=== PATIENT | male | born 1960 | race Caucasian/White ===

== ENCOUNTER 2017-08-01 16:31 | Emergency (ER) | payer MEDICARE, MEDICAID ==
[~2017-08-01] VITALS: Ht 177.8 cm; Wt 103.4 kg
[~2017-08-01 16:31] MED LIST: DIAZ5TAB PO; ESOM40CA PO; HYDR1TAB PO; NAP220T PO; ONDA4TAB12 PO; TELM1TAB6 PO; VARE1TAB11 PO; ZOLP5TAB8 PO
[2017-08-01 16:41] VITALS: BP 115/64
[2017-08-01] MEDS ORDERED: LIDOcaine 1.5% w/epinephrine 1:200,000 5ml ampul IJ ONE (16:55)
[2017-08-01] MEDS ORDERED: TETanus/Pertussis (Acell)/Diphther VAC/PF (Tdap-Adult) 0.5ml syringe IM ONE (16:55)
[2017-08-01] MEDS ORDERED: SULF1TAB49 PO (16:59)
[2017-08-01] MEDS ORDERED: CEPH-572 PO (16:59)
== END 2017-08-01 17:30 | disposition home or self-care (01) ==
LOC: ER 16:32
DX: L02.416 Cutaneous abscess of left lower limb (principal); I10 Essential (primary) hypertension; E11.9 Type 2 diabetes mellitus without complications; Z88.6 Allergy status to analgesic agent
CPT/HCPCS: 10060; 99284; A6449; J3490; 90715

== ENCOUNTER 2018-05-25 05:47 | Day surgery (SDC) | payer MEDICARE, MEDICAID ==
[2018-05-17 11:06] LABS: BASOPHILS % (AUTO) 0.8 % (0-1); EOSINOPHILS # (AUTO) 0.3 X10'3 (0-0.9); EOSINOPHILS % (AUTO) 5.8 % (0-6); LYMPHOCYTES # (AUTO) 1.7 X10'3 (1.1-4.8); LYMPHOCYTES % (AUTO) 28.3 % (21-51); MEAN CORPUSCULAR HEMOGLOBIN 30.5 PG (27.0-31.0); MEAN CORPUSCULAR HGB CONC 33.1 % (33.0-36.5); MEAN CORPUSCULAR VOLUME 92.2 FL (78-98); MEAN PLATELET VOLUME 9.7 FL (7.4-10.4); MONOCYTES # (AUTO) 0.3 X10'3 (0-0.9); MONOCYTES % (AUTO) 5.8 % (2-12); NEUTROPHILS # (AUTO) 3.5 X10'3 (1.8-7.7); NEUTROPHILS % (AUTO) 59.3 % (42-75); PRE OP HEMATOCRIT 45.2 % (42.0-52.0); PRE OP PLATELET COUNT 267 X10'3 (140-440); RED CELL DISTRIBUTION WIDTH 12.9 % (11.5-14.5)
[2018-05-17 11:16] LABS: PRE OP PROTIME 10.1 SECONDS (9.0-12.0)
[2018-05-17 11:24] LABS: ALBUMIN 3.8 G/DL (3.4-5.0); ALBUMIN/GLOBULIN RATIO 1.4 (1.1-1.5); ALKALINE PHOSPHATASE 92 IU/L (46-116); BLOOD UREA NITROGEN 19 MG/DL (7-18); BUN/CREATININE RATIO 29.2 (5.4-32.0); CALCIUM 8.6 MG/DL (8.5-10.1); CHLORIDE 104 MMOL/L (99-107); CREATININE 0.65 MG/DL (0.60-1.10); PRE OP ALT 44 U/L (30-65); PRE OP ANION GAP 10 (8-16); PRE OP AST 22 U/L (10-37); PRE OP BILIRUB, TOTAL 0.4 MG/DL (0.0-1.0); PRE OP GLUCOSE 126 MG/DL (70-104); PRE OP SODIUM 140 MMOL/L (135-145); TOTAL CARBON DIOXIDE 26.4 MMOL/L (24-32); TOTAL PROTEIN 6.6 G/DL (6.4-8.2); eGFR > 90 ML/MIN
[~2018-05-25] VITALS: Ht 177.8 cm; Wt 98.2 kg
[2018-05-25 05:45] VITALS: BP 101/72
[~2018-05-25 05:47] MED LIST changes: +ATOR40TA PO; -DIAZ5TAB PO; +DONE10TA7 PO; -ESOM40CA PO; +HYDR-4353 PO; -HYDR1TAB PO; +IBUP-1984 PO; -NAP220T PO; +OMEP20TA5 PO; -ONDA4TAB12 PO; +ONDA4TAB9 SL; +RIZA10TA29 SL; -TELM1TAB6 PO; +TELM80TA9 PO; -VARE1TAB11 PO; -ZOLP5TAB8 PO; +albuterol 2.5 MG/3 ML nebule NEB ONE; +cefazolin/dext.iso 2gm/50ml 50 ML IV ONE; +famotidine 20mg tablet PO ONE; +ringers solution, lacted 1,000 ML IV SCH
[2018-05-25] MEDS ORDERED: LIDOcaine 1% (10mg/ml) 2ml vial ONE (06:00)
[2018-05-25] MEDS ORDERED: HALDOL PO (06:29)
[2018-05-25] MEDS ORDERED: MEMA10TA PO ×2 (06:31)
[2018-05-25] MEDS ORDERED: BUPIVAcaine/PF 2.5mg/ml (0.25%) 10ml vial ONE (06:44)
[2018-05-25] MEDS ORDERED: LIDOcaine 0.5% (5mg/ml) 50ml vial ONE (07:20)
[2018-05-25] MEDS ORDERED: MIDAZolam 5mg/5ml vial ONE (07:23)
[2018-05-25] MEDS ORDERED: fentaNYL/PF 50MCG/1 ML 2ML syringe ONE (07:23)
[2018-05-25] MEDS ORDERED: ringers solution, lacted 1,000 ML IV SCH (08:23)
[2018-05-25] MEDS ORDERED: morphine 4 MG/ML inj SYRINge IV PRN ×2 (08:25)
[2018-05-25] MEDS ORDERED: meperidine/PF 25mg/ml syringe IV PRN ×3 (08:25)
[2018-05-25] MEDS ORDERED: ondansetron/PF 4mg/2ml inj IV PRN (08:25)
[2018-05-25] MEDS ORDERED: proCHLORperazine 10 MG/2 ml inj IV PRN (08:25)
[2018-05-25] MEDS ORDERED: propofol inj 20 ML IV ONE (09:04)
[2018-05-25 10:04] VITALS: BP 114/74
[2018-05-25 10:14] VITALS: BP 126/78
[2018-05-25 10:24] VITALS: BP 128/84
== END 2018-05-25 10:34 | disposition home or self-care (01) ==
LOC: PAS 05:47
PROVIDERS: ATTEND Orthopaedic Surgery Hand Surgery
DX: M19.032 Primary osteoarthritis, left wrist (principal); M25.332 Other instability, left wrist; M25.532 Pain in left wrist; I10 Essential (primary) hypertension; F17.210 Nicotine dependence, cigarettes, uncomplicated; Z79.899 Other long term (current) drug therapy; F41.9 Anxiety disorder, unspecified; G89.29 Other chronic pain; Z98.890 Other specified postprocedural states
CPT/HCPCS: 25800; 36415; 80053; 85025; 85610; 85730; 93005; A6402; A6449; C1713; J0690; J2001; J2175; J2250; J2704; J3010; J3490; J7120; A7000

== ENCOUNTER 2023-05-14 10:52 | Emergency (ER) | payer MEDICARE, MEDICAID ==
[~2023-05-14] VITALS: Ht 177.8 cm; Wt 83.0 kg
[~2023-05-14 10:52] MED LIST changes: +DONE10TA19 PO; -DONE10TA7 PO; +HALDOL PO; +MEMA10TA PO; +OMEP20TA43 PO; -OMEP20TA5 PO; -RIZA10TA29 SL; +RIZA10TA98 SL; -albuterol 2.5 MG/3 ML nebule NEB ONE; -cefazolin/dext.iso 2gm/50ml 50 ML IV ONE; -famotidine 20mg tablet PO ONE; -ringers solution, lacted 1,000 ML IV SCH
[2023-05-14 10:57] VITALS: BP 143/92; PULSE 61; RESP 16; TEMP 97.2; O2SAT 97
[2023-05-14 11:34] LABS: BASOPHILS % (AUTO) 0.2 % (0-1); EOSINOPHILS # (AUTO) 0.2 X10'3 (0-0.9); EOSINOPHILS % (AUTO) 2.9 % (0-6); HEMOGLOBIN 15.8 g/dl (14.0-17.9); LYMPHOCYTES # (AUTO) 1.4 X10'3 (1.1-4.8); LYMPHOCYTES % (AUTO) 18.4 % (21-51); MEAN CORPUSCULAR HEMOGLOBIN 30.8 PG (27.0-31.0); MEAN CORPUSCULAR HGB CONC 33.7 g/dL (33.0-36.5); MEAN CORPUSCULAR VOLUME 91.5 FL (78-98); MEAN PLATELET VOLUME 8.7 FL (7.4-10.4); MONOCYTES # (AUTO) 0.6 X10'3 (0-0.9); NEUTROPHILS # (AUTO) 5.6 X10'3 (1.8-7.7); NEUTROPHILS % (AUTO) 70.5 % (42-75); PLATELET COUNT 230 X10'3 (140-440); RED BLOOD COUNT 5.14 X10'6 (4.70-6.10); RED CELL DISTRIBUTION WIDTH 13.8 % (11.5-14.5); WHITE BLOOD COUNT 7.9 X10'3 (4.5-11.0)
[2023-05-14 11:58] LABS: ALANINE AMINOTRANSFERASE 36 U/L (12-78); ALBUMIN 3.9 G/DL (3.4-5.0); ALBUMIN/GLOBULIN RATIO 1.1 (1.1-1.5); ALKALINE PHOSPHATASE 93 IU/L (46-116); ANION GAP 7 (8-16); ASPARTATE AMINO TRANSFERASE 21 U/L (10-37); BILIRUBIN,TOTAL 0.6 MG/DL (0.1-1.0); BLOOD UREA NITROGEN 18 MG/DL (7-18); CHLORIDE 103 MMOL/L (99-107); CREATININE 0.58 MG/DL (0.60-1.10); GLUCOSE 96 MG/DL (70-104); POTASSIUM 4.2 MMOL/L (3.5-5.1); SODIUM 139 MMOL/L (135-145); TOTAL CARBON DIOXIDE 29.3 MMOL/L (24-32); TOTAL PROTEIN 7.4 G/DL (6.4-8.2); eCRCL 140 ML/MIN; eGFR > 90 ML/MIN
[2023-05-14] MEDS ORDERED: MECL-231 PO (13:09)
== END 2023-05-14 13:49 | disposition home or self-care (01) ==
LOC: ER 10:52
DX: R42 Dizziness and giddiness (principal); I10 Essential (primary) hypertension; E11.9 Type 2 diabetes mellitus without complications; Z79.899 Other long term (current) drug therapy; Z79.1 Long term (current) use of non-steroidal anti-inflammatories (NSAID); Z88.5 Allergy status to narcotic agent
CPT/HCPCS: 36415; 80053; 85025; 93005; 99284

== ENCOUNTER 2023-11-07 16:02 | Emergency (ER) | payer MEDICARE, MEDICAID ==
[~2023-11-07] VITALS: Ht 177.8 cm; Wt 90.9 kg
[~2023-11-07 16:02] MED LIST changes: +MECL-231 PO
[2023-11-07 16:05] VITALS: BP 134/92; PULSE 78; O2SAT 97
[2023-11-07] MEDS ORDERED: HYDR-3965 PO (16:47)
[2023-11-07 17:09] VITALS: RESP 16
[2023-11-07] MEDS: HYDROcodone/acetaminophen 5mg/325mg tablet PO ONE (17:09)
[2023-11-07 17:16] VITALS: TEMP 97.8
== END 2023-11-07 17:23 | disposition home or self-care (01) ==
LOC: ER 16:02
DX: S93.401A Sprain of unspecified ligament of right ankle, initial encounter (principal); Z88.8 Allergy status to other drugs, medicaments and biological substances; I10 Essential (primary) hypertension; E11.9 Type 2 diabetes mellitus without complications; G89.29 Other chronic pain; X50.1XXA Overexertion from prolonged static or awkward postures, initial encounter; Y93.89 Activity, other specified; Y92.89 Other specified places as the place of occurrence of the external cause; Y99.8 Other external cause status
CPT/HCPCS: 73610; 73630; 99284; L4360